=== PATIENT | female | born 1990 | race Hispanic/Latino ===

== ENCOUNTER 2018-11-12 13:59 | Emergency (ER) | payer SELFPAY ==
[~2018-11-12] VITALS: Ht 167.6 cm; Wt 140.0 kg
[2018-11-12 14:54] LABS: HEMOGLOBIN 14.1 g/dl (12.0-16.0); IMMATURE GRANULOCYTES 0.3 % (0.0-5.0); MEAN CELL VOLUME 87.9 fL CALC (80.0-100.0); MEAN CORPUSCULAR HGB 28.8 pG CALC (26.0-32.0); MEAN CORPUSCULAR HGB CONC 32.8 g/L CALC (32.0-36.0); NEUT# 7.86 thou/uL (2.00-7.15); RED BLOOD COUNT 4.89 mill/uL (4.20-5.60); RED CELL DISTRI WIDTH 12.6 % (11.5-15.5)
[2018-11-12 15:11] LABS: ALBUMIN 4.3 g/dL (3.2-5.0); ALKALINE PHOSPHATASE 88 u/l (38-126); ANION GAP 15 (6-22 (CALC)); BILIRUBIN, TOTAL 0.3 mg/dL (0.0-1.4); BUN 8 mg/dL (7-17); BUN/CREATININE RATIO 13 (12-20 (CALC)); CARBON DIOXIDE 26 mmol/l (22-30); CHLORIDE 103 mmol/l (95-108); CREATININE 0.6 mg/dL (0.5-1.0); GFR > 60 ML/MIN (>=60 (CALC)); GFR FOR AFR.AMER. > 60 ML/MIN (>=60 (CALC)); SGOT/AST 26 u/l (14-36); SODIUM 140 mmol/l (137-146); TOTAL PROTEIN 8.1 g/dL (6.3-8.2)
[2018-11-12] MEDS ORDERED: CLINDAMYCIN300 M1 PO (18:01)
[2018-11-12] MEDS ORDERED: AMOXICILLIN875 MG PO (18:01)
[2018-11-12 18:15] VITALS: BP 136/78
== END 2018-11-12 18:15 | disposition home or self-care (01) | DRG 603 ==
LOC: ED 13:59
DX: L03.311 Cellulitis of abdominal wall (principal); B95.61 Methicillin susceptible Staphylococcus aureus infection as the cause of diseases classified elsewhere; L98.499 Non-pressure chronic ulcer of skin of other sites with unspecified severity
CPT/HCPCS: Q9967

== ENCOUNTER 2018-11-13 17:43 | Emergency (ER) | payer SELFPAY ==
[~2018-11-13] VITALS: Ht 167.6 cm; Wt 140.0 kg
[~2018-11-13 17:43] MED LIST: AMOXICILLIN875 MG PO; CLINDAMYCIN300 M1 PO
[2018-11-13 18:03] VITALS: BP 186/103
== END 2018-11-13 18:08 | disposition home or self-care (01) | DRG 951 ==
LOC: ED 17:43
DX: Z48.01 Encounter for change or removal of surgical wound dressing (principal)

== ENCOUNTER 2018-11-15 09:59 | Emergency (ER) | payer SELFPAY ==
[~2018-11-15] VITALS: Ht 167.6 cm; Wt 132.0 kg
[2018-11-15 11:21] VITALS: BP 154/91
== END 2018-11-15 11:21 | disposition home or self-care (01) | DRG 951 ==
LOC: ED 09:59
DX: Z48.01 Encounter for change or removal of surgical wound dressing (principal); F17.210 Nicotine dependence, cigarettes, uncomplicated